=== PATIENT | female | born 1965 | race Caucasian/White ===

== ENCOUNTER → 2016-12-14 | Outpatient (CLI) | payer OTHER ==
[~2016-12-14] MED LIST: ADV500INH INH; BENA25CA2 PO; CALC500C8 PO; EPIP0.3I2 INJ; IBUP600T26 PO; LITH45TASA PO; MULTCAP PO; PRIL20CA9 PO; TAMO10TA PO; TAMOPOW11 XX; TIOT18INH INH; VITA100037 PO; VITATAB11 PO
--- NOTE | 2016-12-14 10:52 | REP ---
Clinical: Osteoarthritis. Technique: AP, lateral, bilateral oblique views of the right hand. Findings: Mild joint space narrowing involving the interphalangeal joints is appreciated. Periarticular sclerosis, spurring and mild subluxation at the first carpal metacarpal joint is also suggested and findings are compatible with early osteoarthritic disease. No acute fracture dislocation. Impression: Early osteoarthritic degenerative changes primarily involving the first carpometacarpal joint and interphalangeal joints. Signed by Waqas Franco MD 12/14/2016 10:43 A
== END ==
LOC: M RAD 10:14
PROVIDERS: ATTEND Family Medicine
DX: M19.041 Primary osteoarthritis, right hand (principal)

== ENCOUNTER 2017-01-17 14:13 | Inpatient (IN) | payer OTHER ==
[~2017-01-17] VITALS: Ht 160 cm; Wt 44.0 kg
[2017-01-17] MEDS ORDERED: NS 1,000 ML IV ONE (15:30)
[2017-01-17 15:55] LABS: BASO # 0.1 K/mm3 (0.0-0.2); BASO % 0.4 % (0.0-1.0); EOS # 0.3 K/mm3 (0.0-0.50); EOS % 2.2 % (0.0-3.0); LARGE UNSTAINED CELL # 0.3 K/mm3 (0.0-0.4); LARGE UNSTAINED CELL % 2.1 % (0.0-4.0); LYMPH # 2.3 K/mm3 (1.5-4.5); MEAN CORPUSCULAR HEMOGLOBIN 33.6 pg (27.0-33.0); MEAN CORPUSCULAR HGB CONC 33.3 g/dl (32.0-36.5); MEAN CORPUSCULAR VOLUME 100.8 fl (80.0-96.0); MONO # 0.9 K/mm3 (0.0-0.8); MONO % 6.2 % (0.0-5.0); NEUTROPHILS # 10.6 K/mm3 (1.8-7.7); NEUTROPHILS % 75.2 % (36.0-66.0); RED CELL DISTRIBUTION WIDTH 11.9 % (11.5-14.5); WHITE BLOOD COUNT 14.2 K/mm3 (4.0-10.0)
[2017-01-17 16:02] LABS: PLATELET COUNT, AUTOMATED 326 k/mm3 (150-450)
[2017-01-17 16:03] LABS: METHADONE URINE NEGATIVE (NEGATIVE)
[2017-01-17 16:40] LABS: ALBUMIN 3.7 GM/DL (3.2-5.2); ALBUMIN/GLOBULIN RATIO 1.23 (1.00-1.93); ALKALINE PHOSPHATASE 110 U/L (45-117); ALT/SGPT 17 U/L (12-78); ANION GAP 10 MEQ/L (8-16); AST/SGOT 14 U/L (15-37); BILIRUBIN,DIRECT < 0.1 MG/DL (0.0-0.2); BILIRUBIN,TOTAL 0.4 MG/DL (0.2-1.0); BLOOD UREA NITROGEN 13 MG/DL (7-18); CALCIUM LEVEL 12.3 MG/DL (8.5-10.1); CARBON DIOXIDE LEVEL 26 MEQ/L (21-32); CHLORIDE LEVEL 102 MEQ/L (98-107); CREATININE FOR GFR 0.88 MG/DL (0.55-1.02); GLOMERULAR FILTRATION RATE > 60.0 (>51); GLUCOSE, FASTING 104 MG/DL (70-105); POTASSIUM SERUM 4.2 MEQ/L (3.5-5.1); SODIUM LEVEL 138 MEQ/L (136-145); TOTAL PROTEIN 6.7 GM/DL (6.4-8.2)
[2017-01-17 16:57] LABS: LITHIUM LEVEL 2.23 MEQ/L (0.60-1.20)
[2017-01-17] MEDS ORDERED: TAMO20TA4 PO (18:14)
[2017-01-17] MEDS ORDERED: MELO15TA4 PO (18:14)
[2017-01-17] MEDS ORDERED: PROA1AER INH (18:14)
[2017-01-17] MEDS ORDERED: VOLT1GEL24 TD (18:14)
[2017-01-17] MEDS ORDERED: DIPH25CA PO (18:15)
[2017-01-17] MEDS ORDERED: CALC600T10 PO (18:16)
[2017-01-17] MEDS ORDERED: ACETAMINOPHEN TAB 650MG DOSE (2X325MG) PO PRN (19:00)
[2017-01-17] MEDS ORDERED: ONDANSETRON 4MG/2ML VIAL (J2405) IV PRN (19:00)
[2017-01-17] MEDS ORDERED: diphenhydrAMINE 25 MG CAP PO PRN (19:15)
[2017-01-17] MEDS ORDERED: ALBUTEROL 90 MCG/ACT 8GM HFA INHALER INH PRN (19:15)
--- NOTE | 2017-01-17 19:30 | HPEPDOC ---
Medical History and Physical Date of Admission History and Physical PRIMARY CARE PROVIDER: Dr. Boyd - resident clinic Oncologist: Dr. Sparks in [place]. Radiation Oncologist: Dr. Joyce Psychiatrist: Dr. Urban ATTENDING: Dr. Granado ADVANCED DIRECTIVES: FULL CODE CHIEF COMPLAINT: [Weakness] HISTORY OF PRESENT ILLNESS: [51-year-old female with known history of bipolar disorder was seen by her psychiatrist today and felt that she needed a lithium level checked and sent to the emergency department for lab work. Her lithium level was noted to be elevated mildly by the ER staff and hospitalist was contacted for overnight admission evaluation as well as follow-up in the morning. The ER did speak with Dr. Richard/log buncher who felt that this was a mild elevation. She has good kidney function and does not require any emergent hemodialysis. She informs me that she's had weakness, intermittent tremors for the last several months. Her psychiatrist has scheduled her to see neurology here in [place]. That appointment is scheduled for sometime next week. She denies any constitutional symptoms. She denies fevers, chills, nausea, vomiting or diarrhea. No change in appetite. She's had a 12 pound weight loss which is unintentional. She does have an underlying history of left breast cancer status post lumpectomy followed by medical oncology, radiation oncology and is currently on tamoxifen.] PAST MEDICAL HISTORY: 1. Bipolar disorder. 2. Schizophrenia. 3. Asthma. 4. Arthritis. 5. GERD. 6. Nut allergy PAST SURGICAL HISTORY: 1. Left breast lumpectomy. 2. D&C. 3. Total abdominal hysterectomy with bilateral salpingo-oophorectomy SOCIAL HISTORY: She states that she quit smoking approximately 6 years ago. Occasional alcohol use. She drank 2 beers last night and spent several weeks since last time she had a alcohol. She has one dog. Recent travel was to [place] approximately 2 weeks ago. She denies any sick contacts. FAMILY HISTORY: Noncontributory ALLERGIES: Please see below. REVIEW OF SYSTEMS: CONSTITUTIONAL: 12 pound weight loss in the last couple of months. Generalized weakness for the last few days. No fever, chills, nausea or vomiting . HEENT: No headache, lightheadedness, blurred or loss of vision. No difficulty with speech or swallow. CARDIOVASCULAR: No chest pain, palpitations, paroxysmal nocturnal dyspnea or lower extremity edema RESPIRATORY: No cough, productive sputum, wheeze or hemoptysis GENITOURINARY: No dysuria, frequency, or discharge MUSCULOSKELETAL: No bone, muscle or joint pain. GASTROINTESTINAL: No [place], vomitting, change in appetite. Bowel movements are regular without hematochezia or melena. No bladder or bowel incontinence. SKIN: No complaint of lesions, abrasions or rashes NEUROLOGICAL: No blurred vision, headaches, parasthesias or paralysis PSYCHIATRIC: No depression, anxiety, audiovisual hallucinations. No suicidal ideations. ENDOCRINE: Denies history of diabetes or thyroid disorder. No history of endocrine abnormalities. HEMATOLOGIC/LYMPHATIC: No lumpbs, bumps or swelling of neck, axilla or groin. No night sweats or weight loss. HOME MEDICATIONS: Please see below. PHYSICAL EXAMINATION: GENERAL APPEARANCE: [No acute distress, is pleasant]. HEENT: [Is atraumatic and cephalic. Eyes PERRLA. Throat clear]. CARDIOVASCULAR: [Regular rate and rhythm. No murmurs]. LUNGS: [Clear to auscultation bilaterally]. ABDOMEN: [Soft, nontender, positive bowel sounds. No masses. No rebound]. MUSCULOSKELETAL: [Her strength is equal. No motor or sensory deficits noted]. EXTREMITIES: [Pulses are equal. No lower extremity edema]. NEUROLOGICAL: [Cranial nerves II through XII are grossly intact. She has a mild tremor noted distally in the hands but no asterixis]. PSYCHIATRIC: [Pleasant, no suicidal ideation. No audiovisual examinations]. LABORATORY DATA: See below. IMAGING: MICROBIOLOGY: Please see below. ASSESSMENT: [ 1. Mild lithium toxicity. 2. Tremor 3. Bipolar disorder. 4. Schizophrenia. 5. Asthma. 6. History of breast cancer status post left breast lumpectomy, currently on tamoxifen and has had radiation oncology]. PLAN: [Patient be admitted to medical surgical floor under the care of Dr. Granado to be seen tomorrow morning. She appears to be hemodynamically stable. Her renal function is stable and she does appear to have some mild lithium toxicity with no urgent need of hemodialysis. Case was discussed with Dr. Richard by the emergency department staff. We'll hold her evening lithium dose as well as tomorrow morning, and plan on repeating her lithium with renal Profile that time. She is already scheduled with neurology for further evaluation of her tremors. Would like to see if this improves with normalization of her serum lithium level. I did not place any formal consultations with nephrology or neurology. At this time. We'll see how she's doing on the morning. If her labs are improved. Her lithium level is back to normal. She likely can be discharged home with appropriate follow-up with her psychiatrist as well as neurology. She does not indicate to me that she has mistakenly doubled up on any of her doses of her lithium. However, this may need to be adjusted by her psychiatrist. Her TSH was noted to be low with hemolysis and lab is going to recollect this. We may want to follow up on this in the morning since hyperthyroidism may account for her weight loss. No goiter noted on physical exam. DVT prophylaxis: Patient is ambulatory. We'll encourage her to ambulate. Disposition: She'll be admitted as observation status and anticipate home discharge tomorrow. Vital Signs Vital Signs Date Time Temp Pulse Resp B/P (MAP) Pulse Ox O2 Delivery O2 Flow Rate FiO2 01/17/17 18:12 71 17 108/64 (79) 98 Room Air 01/17/17 14:14 96.4 Laboratory Data Labs 24H Laboratory Tests 2 01/17/17 15:28: Urine Appearance HAZY, Urine Color YELLOW, Urine pH 7.0, Urine Specific [place] 1.002, Urine Protein NEGATIVE, Urine Glucose (UA) NEGATIVE, Urine Ketones NEGATIVE, Urine Urobilinogen 0.2, Urine Bilirubin NEGATIVE, Urine Leukocyte Esterase NEGATIVE, Urine Blood NEGATIVE, Urine Nitrite NEGATIVE, Urine WBC (Auto ) 1, Urine RBC (Auto) 1, Urine Hyaline Casts (Auto) 0, Urine Bacteria (Auto) 1+H , Urine Squamous Epithelial Cells 1, Urine Sperm (Auto) , Urine Amphetamines Screen NEGATIVE, Urine Benzodiazepines Screen NEGATIVE, Urine Opiates Screen NEGATIVE, Urine Methadone Screen NEGATIVE, Urine Barbiturates Screen NEGATIVE, Urine Phencyclidine Screen NEGATIVE, Urine Cocaine Metabolite Screen NEGATIVE, Urine Cannabinoids Screen POSITIVEH 01/17/17 15:44: White Blood Count 14.2H, Red Blood Count 3.64L, Hemoglobin 12.2, Hematocrit 36.7 , Mean Corpuscular Volume 100.8H, Mean Corpuscular Hemoglobin 33.6H, Mean Corpuscular Hemoglobin Concent 33.3, Red Cell Distribution Width 11.9, Platelet Count 326, Neutrophils (%) (Auto) 75.2H, Lymphocytes (%) (Auto) 14.0L, Monocytes (%) (Auto) 6.2H, Eosinophils (%) (Auto) 2.2, Basophils (%) (Auto) 0.4 , Neutrophils # (Auto) 10.6H, Lymphocytes # (Auto) 2.3, Monocytes # (Auto) 0.9H , Eosinophils # (Auto) 0.3, Basophils # (Auto) 0.1, Large Unclassified Cells % 2.1, Large Unclassified Cells # 0.3 01/17/17 15:54: Anion Gap 10, Glomerular Filtration Rate > 60.0, Calcium Level 12.3H, Aspartate Amino Transf (AST/SGOT) 14L, Alanine Aminotransferase (ALT/SGPT) 17, Alkaline Phosphatase 110, Total Bilirubin 0.4, Direct Bilirubin < 0.1, Total Protein 6.7 , Albumin 3.7, Albumin/Globulin Ratio 1.23, Thyroid Stimulating Hormone (TSH) 0.028L, Free Thyroxine 2.30H, [place] Level 2.23*H CBC/BMP Laboratory Tests 01/17/17 15:44 Red Blood Count 3.64 L, Mean Corpuscular Volume 100.8 H, Mean Corpuscular Hemoglobin 33.6 H, Mean Corpuscular Hemoglobin Concent 33.3, Red Cell Distribution Width 11.9, Neutrophils (%) (Auto) 75.2 H, Lymphocytes (%) (Auto) 14.0 L, Monocytes (%) (Auto) 6.2 H, Eosinophils (%) (Auto) 2.2, Basophils (%) ( Auto) 0.4, Neutrophils # (Auto) 10.6 H, Lymphocytes # (Auto) 2.3, Monocytes # ( Auto) 0.9 H, Eosinophils # (Auto) 0.3, Basophils # (Auto) 0.1 01/17/17 15:54 Home Medications Scheduled (Multivitamins) 1 Cap Cap, 1 CAP PO DAILY B1/B2/B3/B5/B6 (Vitamin B Complex) 1 Tab Tab, 1 TAB PO DAILY Calcium (Calcium) 600 Mg Tab, 600 MG PO DAILY [place] Carbonate ([place] Carbonate ER) 450 Mg Tabcr, 450 MG PO BID Meloxicam (Meloxicam) 15 Mg Tab, 15 MG PO DAILY Omeprazole (Prilosec) 20 Mg Cap, 20 MG PO DAILY Salmeterol/Fluticasone (Advair Diskus 500-50 Mcg/Dose) 28 Puff/Inhaler Aerp, 1 PUFF INH BID Tamoxifen Citrate (Tamoxifen Citrate) 20 Mg Tab, 20 MG PO DAILY Tiotropium [place] Monohydrate (Spiriva Handihaler) 5 Inhalation/Inhaler Powd, 1 INHALATION INH DAILY Vitamin D (Vitamin D) 1,000 Unit Cap, 1,000 UNIT PO DAILY Scheduled PRN (Epipen 2-Jose) 0.3 Mg/0.3 Ml Inj, 0.3 MG INJ for allergic rxn (Voltaren) 1 % Gel, 2 GRAM TD QID PRN for PAIN APPLIES TO RIGHT THUMB Albuterol Sulfate (Proair Hfa) 108 Mcg/Act Aer, 2 PUFF INH QID PRN for SHORTNESS OF BREATH Diphenhydramine HCl (Diphenhydramine HCl) 25 Mg Cap, 25 MG PO Q6H PRN for ALLERGIC REACTION Allergies Coded Allergies: Banana (Unverified Allergy, Unknown, 01/17/17) Cabbage (Unverified Allergy, Unknown, 01/17/17) Grape (Unverified Allergy, Unknown, 01/17/17) Lettuce (Unverified Allergy, Unknown, 01/17/17) NUTS (Unverified Allergy, Unknown, 01/17/17) DMITRIY COVARRUBIAS DO Jan 17, 2017 19:30
[2017-01-17 20:58] VITALS: BP 116/69
[2017-01-17] MEDS: DOCUSATE SODIUM 100 MG CAP PO SCH (21:00)
[2017-01-18] MEDS: ADVAIR DISKUS 500/50 INH PWD INH SCH ×3 (00:21→20:39)
--- NOTE | 2017-01-18 05:38 | ECGEPIP ---
Stationary ECG Study [facility] - ED Test Date: 2017-01-17 Pat Name: WALDEMAR THOMPSON Department: Room: - Gender: F Nursing Faculty: : [id number] Requested By: LÁZARO Davila PA-C Order Number: [id number] Reading MD: Juan Alberto Doty Measurements Intervals [place] Rate: 77 P: 68 SC: 156 QRS: 80 QRSD: 91 T: 61 QT: 389 QTc: 440 Interpretive Statements SINUS RHYTHM Electronically Signed On 01-18-2017 5:37:45 EDT by Juan Alberto Doty
[2017-01-18 06:00] VITALS: BP 126/74
[2017-01-18 06:34] LABS: MEAN CORPUSCULAR HEMOGLOBIN 33.5 pg (27.0-33.0); MEAN CORPUSCULAR HGB CONC 32.8 g/dl (32.0-36.5); WHITE BLOOD COUNT 11.2 K/mm3 (4.0-10.0)
[2017-01-18 06:53] LABS: ALBUMIN 3.3 GM/DL (3.2-5.2); ANION GAP 4 MEQ/L (8-16); BLOOD UREA NITROGEN 12 MG/DL (7-18); CALCIUM LEVEL 10.7 MG/DL (8.5-10.1); CARBON DIOXIDE LEVEL 27 MEQ/L (21-32); CHLORIDE LEVEL 110 MEQ/L (98-107); CREATININE FOR GFR 0.85 MG/DL (0.55-1.02); GLOMERULAR FILTRATION RATE > 60.0 (>51); GLUCOSE, FASTING 106 MG/DL (70-105); PHOSPHORUS LEVEL 3.6 MG/DL (2.5-4.9); POTASSIUM SERUM 4.2 MEQ/L (3.5-5.1); SODIUM LEVEL 141 MEQ/L (136-145)
[2017-01-18 06:58] LABS: LITHIUM LEVEL 1.57 MEQ/L (0.60-1.20)
[2017-01-18] MEDS: TIOTROPIUM INHALER/CAPSULE (SPIRIVA) INH SCH (07:24)
[2017-01-18 08:00] VITALS: BP 126/74
[2017-01-18] MEDS: TAMOXIFEN CITRATE 10 MG TAB PO SCH (08:25)
[2017-01-18] MEDS: DOCUSATE SODIUM 100 MG CAP PO SCH ×2 (08:25→20:27)
[2017-01-18] MEDS: VITAMIN D 1,000 INTERNATIONAL UNITS TABLET PO SCH (08:26)
[2017-01-18] MEDS: OMEPRAZOLE 20 MG CAP PO SCH (08:26)
[2017-01-18] MEDS: VITAMIN B COMPLEX/VIT C CAP PO SCH (08:28)
[2017-01-18] MEDS ORDERED: ENOXAPARIN 40 MG/0.4 ML SYRINGE (J1650) SC SCH (09:00)
[2017-01-18 10:38] LABS: FREE T4 2.14 NG/DL (0.76-1.46)
--- NOTE | 2017-01-18 13:44 | IPNPDOC ---
Text Note Date of Service The patient was seen on 01/18/17. NOTE Subjective: Patient is a 51 year old female with a PMHx of Bipolar disorder, Schizophrenia, Asthma, Arthritis and GERD who presented to the ER for a lithium check after she had a few months of weakness and tremors. Her psychiatrist sent her in for evaluation after they suspected an elevation in her lithium level. She was admitted after she was found to have a supra-therapeutic level. Patient was seen and examined at the bedside. Currently she notes that she has improvement in her symptoms but not full resolution. Objective: Vitals (See below) General: Lying in bed, no acute distress, comfortable, AAOx3 HEENT: NC, AT CVS: RRR, +S1S2 Lungs: Fair air entry b/l, -w/r/r Abdomen: Soft, ND, NT, +BSx4 Extremities: +PPx4, - Edema, - Calf tenderness, + tremors Assessment and plan: 1. Tremulousness - likely 2/2 elevated lithium level / lithium toxicity - Reports improvement in her symptoms, less tremors noted - Physical is unrevealing - No abnormalities in her kidney function noted - [place] level has trended down, however still elevated - will c/w IV fluid hydration - Will follow up with Neurology and Psychiatry as an outpatient 2. Bipolar disorder - will hold lithium for now (re: toxicity) 3. Low TSH and Elevated Free T4 - possibly 2/2 hypothyroidism - 2/2 medications (ie. [place]) - Repeat lab work again shows similar results - Will stop lithium and have repeat thyroid function test in 6-8 weeks as an outpatient 4. Schizophrenia 5. Asthma 6. Hx of Breast cancer - s/p left breast lumpectomy - c/w Tamoxifen - Follows with [place] oncology and Radiation Oncology (Dr. Joyce) 7. Vitamin D deficiency - c/w Vitamin D supplementation 8. Asthma - c/w Advair, Spiriva and Albuterol PRN 9. GI prophylaxis - c/w Omeprazole 10. DVT prophylaxis - c/w Lovenox Disposition: - c/w IV fluid hydration - repeat [place] level in AM VS,Fishbone, I+O VS, Fishbone, I+O Laboratory Tests 01/17/17 15:44 Red Blood Count 3.64 L, Mean Corpuscular Volume 100.8 H, Mean Corpuscular Hemoglobin 33.6 H, Mean Corpuscular Hemoglobin Concent 33.3, Red Cell Distribution Width 11.9, Neutrophils (%) (Auto) 75.2 H, Lymphocytes (%) (Auto) 14.0 L, Monocytes (%) (Auto) 6.2 H, Eosinophils (%) (Auto) 2.2, Basophils (%) ( Auto) 0.4, Neutrophils # (Auto) 10.6 H, Lymphocytes # (Auto) 2.3, Monocytes # ( Auto) 0.9 H, Eosinophils # (Auto) 0.3, Basophils # (Auto) 0.1 01/17/17 15:54 01/18/17 06:03 Red Blood Count 3.36 L, Mean Corpuscular Volume 102.0 H, Mean Corpuscular Hemoglobin 33.5 H, Mean Corpuscular Hemoglobin Concent 32.8, Red Cell Distribution Width 12.0, Anion Gap 4 L Vital Signs Date Time Temp Pulse Resp B/P (MAP) Pulse Ox O2 Delivery O2 Flow Rate FiO2 01/18/17 08:33 Room Air 01/18/17 08:00 98.2 81 18 126/74 97 I&O- Last 24 Hours up to 6 AM 01/18/17 06:00 Intake Total 140 ml Output Total 2100 ml Balance -1960 ml OSCAR BRICE MD Jan 18, 2017 13:44
[2017-01-18 14:00] VITALS: BP 110/88
[2017-01-18] MEDS ORDERED: NS 1,000 ML IV SCH (14:00)
[2017-01-18 22:00] VITALS: BP 126/96
[2017-01-19 06:00] VITALS: BP 132/76
[2017-01-19 06:47] LABS: MEAN CORPUSCULAR HEMOGLOBIN 34.1 pg (27.0-33.0); MEAN CORPUSCULAR HGB CONC 33.8 g/dl (32.0-36.5); MEAN CORPUSCULAR VOLUME 100.8 fl (80.0-96.0); RED CELL DISTRIBUTION WIDTH 11.9 % (11.5-14.5); WHITE BLOOD COUNT 11.2 K/mm3 (4.0-10.0)
[2017-01-19 06:57] LABS: ANION GAP 6 MEQ/L (8-16); BLOOD UREA NITROGEN 11 MG/DL (7-18); CALCIUM LEVEL 9.8 MG/DL (8.5-10.1); CARBON DIOXIDE LEVEL 22 MEQ/L (21-32); CHLORIDE LEVEL 110 MEQ/L (98-107); CREATININE FOR GFR 0.76 MG/DL (0.55-1.02); GLOMERULAR FILTRATION RATE > 60.0 (>51); GLUCOSE, FASTING 110 MG/DL (70-105); PHOSPHORUS LEVEL 2.6 MG/DL (2.5-4.9); POTASSIUM SERUM 4.5 MEQ/L (3.5-5.1); SODIUM LEVEL 138 MEQ/L (136-145)
[2017-01-19] MEDS: ADVAIR DISKUS 500/50 INH PWD INH SCH (07:13)
[2017-01-19] MEDS: TIOTROPIUM INHALER/CAPSULE (SPIRIVA) INH SCH (07:13)
[2017-01-19] MEDS: DOCUSATE SODIUM 100 MG CAP PO SCH ×2 (08:39→09:06)
[2017-01-19] MEDS: OMEPRAZOLE 20 MG CAP PO SCH (08:39)
[2017-01-19] MEDS: VITAMIN D 1,000 INTERNATIONAL UNITS TABLET PO SCH (08:39)
[2017-01-19] MEDS: TAMOXIFEN CITRATE 10 MG TAB PO SCH (08:40)
[2017-01-19] MEDS: VITAMIN B COMPLEX/VIT C CAP PO SCH (08:40)
[2017-01-19] MEDS ORDERED: LITH600C PO (10:11)
[2017-01-20 00:07] LABS: Lyme Disease IgG/IgM Antibodie <0.91 ISR (0.00-0.90); Lyme Disease IgM Ab Quantitati <0.80 index (0.00-0.79)
--- NOTE | 2017-01-24 17:19 | DSES ---
DATE OF ADMISSION: 01/17/2017 DATE OF DISCHARGE: 01/19/2017 PRIMARY CARE PHYSICIAN: Unknown. REFERRING PHYSICIAN: None. CONSULTING PHYSICIAN: None. CONDITION ON DISCHARGE: Stable. FINAL DIAGNOSIS: Tremulousness, likely secondary to lithium level toxicity. PROCEDURES: None. HISTORY OF PRESENT ILLNESS: Patient is a 51-year-old female with a past medical history of bipolar disorder, schizophrenia, asthma, arthritis, and gastroesophageal reflux disease (GERD), who presented to the emergency room for a lithium check after she had a few months of weakness and tremors. Her psychiatrist sent her for an evaluation after a suspected elevation in her lithium level. She was admitted after she was found to have a supratherapeutic lithium level. HOSPITAL COURSE: 1. Tremulousness, likely secondary to elevated lithium level and lithium toxicity. Reports improvement in her symptoms throughout her hospital course. Less tremors were noted. Physical was unrevealing. No abnormalities in her kidney function were noted. [place] level has trended down throughout her hospital course. Patient has been started on intravenous (IV) hydration throughout her hospital course. Patient will followup with neurology and psychiatry as an outpatient. [place] toxicity was likely caused by lithium medication given that she was taking nonsteroidal anti-inflammatory drugs (NSAIDs) concurrently, meloxicam for her joint pain. Patient has been discontinued from meloxicam and continued with lithium upon discharge with an adjusted dose. 2. Bipolar disorder. Will hold lithium given toxicity. 3. Low thyroid-stimulating hormone (TSH) and elevated free T4, possibly secondary to hypothyroidism secondary to medications secondary to lithium. Repeat lab work shows similar results. Patient will have adjusted dose of lithium and will followup as an outpatient. Will have a repeat thyroid function test in 6-8 weeks. I have discussed with the patient's psychiatrist, who is aware and will repeat the lab work. 4. Schizophrenia. 5. Asthma. 6. History of breast cancer status post left breast lumpectomy. Continue with tamoxifen. Follows with [place] oncology and radiation oncology, Dr. Shelton. 7. Vitamin D deficiency. Continue with vitamin D supplementation. 8. Asthma. Continue with Advair, Spiriva, and albuterol as needed. 9. Gastrointestinal (GI) prophylaxis. Continue with omeprazole. 10. Deep vein thrombosis (DVT) prophylaxis. Continue with Lovenox. DISCHARGE MEDICATIONS: Patient has been discharged on the following medication list. New prescription include: - lithium carbonate 600 mg by mouth daily Stopped medications include: - lithium carbonate 450 mg by mouth twice a day - meloxicam 50 mg by mouth daily Continued medications include: - albuterol 2 puffs inhaled four times a day as needed for shortness of breath - vitamin B complex one tablet by mouth daily - calcium 600 mg by mouth daily - diphenhydramine 25 mg by mouth every 6 hours as needed for allergic reaction - Epipen 0.3 mg to be taken as directed - multivitamin one tablet by mouth daily - omeprazole 20 mg by mouth daily - Advair Diskus 500/50 one puff inhaled twice a day - Tamoxifen 20 mg by mouth daily - Spiriva inhaled daily - vitamin D 1000 units by mouth daily - Voltaren gel 2 grams transdermally four times a day as needed for pain DISCHARGE INSTRUCTIONS: Patient has been advised to followup with her primary care provider, psychiatry, and neurology within the next 7 days. She has been advised to remain complaint with treatment plan and medications and return to the emergency room if she experiences any problems. TIME SPENT ON DISCHARGE: 35 minutes.
== END 2017-01-19 13:55 | disposition home or self-care (01) | DRG 93 ==
LOC: M ED 17:09 → M ED INP 19:00 → M MS5PR 20:40
PROVIDERS: ADMIT Hospitalist; ATTEND Internal Medicine
DX: R25.1 Tremor, unspecified (principal); T43.595A Adverse effect of other antipsychotics and neuroleptics, initial encounter; R53.1 Weakness; F31.9 Bipolar disorder, unspecified; F20.9 Schizophrenia, unspecified; K21.9 Gastro-esophageal reflux disease without esophagitis; E03.9 Hypothyroidism, unspecified; E55.9 Vitamin D deficiency, unspecified; J45.909 Unspecified asthma, uncomplicated; Z85.3 Personal history of malignant neoplasm of breast; Z79.899 Other long term (current) drug therapy; Z91.018 Allergy to other foods

== ENCOUNTER → 2017-01-23 | Outpatient (CLI) | payer OTHER ==
[~2017-01-23] MED LIST changes: +CALC600T10 PO; +DIPH25CA PO; +LITH600C PO; +MELO15TA4 PO; +PROA1AER INH; +TAMO20TA4 PO; +VOLT1GEL24 TD
== END ==
LOC: M LAB 11:58
PROVIDERS: ATTEND Internal Medicine
DX: Z13.88 Encounter for screening for disorder due to exposure to contaminants (principal)

== ENCOUNTER → 2017-02-01 | Outpatient (CLI) | payer OTHER ==
[~2017-02-01] MED LIST changes: -CALC600T10 PO; +CALC600T31 PO; +IBUP-1022 PO; -IBUP600T26 PO; +LISI10TA4; -PROA1AER INH; +PROAAER10 INH; -VITA100037 PO; +VITA100067 PO; +VOLT1GEL15 TD; -VOLT1GEL24 TD
[2017-02-01 17:07] LABS: LITHIUM LEVEL 1.07 MEQ/L (0.60-1.20)
== END ==
LOC: M LAB 15:24
PROVIDERS: ATTEND Psychiatry & Neurology Psychiatry
DX: Z51.81 Encounter for therapeutic drug level monitoring (principal); Z79.899 Other long term (current) drug therapy

== ENCOUNTER 2017-03-26 16:10 | Emergency (ER) | payer OTHER ==
[~2017-03-26] VITALS: Ht 160 cm; Wt 45.5 kg
[~2017-03-26 16:10] MED LIST changes: -LISI10TA4
[2017-03-26] MEDS ORDERED: RABIES IMMUNE GLOBULIN 1500 INTERNATIONAL UNITS/10 ML VIAL (90375) IM ONE (17:00)
[2017-03-26] MEDS ORDERED: RABIES VACCINE HUMAN 2.5 INTERNATIONAL UNITS/ML VIAL (90675) IM ONE (17:00)
[2017-03-26] MEDS ORDERED: RABIES IMMUNE GLOBULIN 300 INTERNATIONAL UNITS/2 ML VIAL (90375) IM ONE (17:15)
[2017-03-26 18:09] VITALS: BP 168/103
== END 2017-03-26 18:11 | disposition home or self-care (01) ==
LOC: M ED 16:10
DX: Z20.3 Contact with and (suspected) exposure to rabies (principal)

== ENCOUNTER 2017-03-29 16:10 | Emergency (ER) | payer OTHER ==
[~2017-03-29] VITALS: Ht 160 cm; Wt 50.0 kg
[2017-03-29 16:10] VITALS: BP 168/84
[~2017-03-29 16:10] MED LIST changes: -LISI10TA4
[2017-03-29] MEDS ORDERED: RABIES VACCINE HUMAN 2.5 INTERNATIONAL UNITS/ML VIAL (90675) IM ONE (18:07)
== END 2017-03-29 18:36 | disposition home or self-care (01) ==
LOC: M ED 16:10
DX: Z20.3 Contact with and (suspected) exposure to rabies (principal); Z72.0 Tobacco use

== ENCOUNTER → 2017-03-29 | Outpatient (CLI) | payer OTHER ==
[~2017-03-29] MED LIST changes: +LISI10TA4
== END ==
LOC: M LAB 08:50
PROVIDERS: ATTEND Student in an Organized Health Care Education/Training Program
DX: M79.644 Pain in right finger(s) (principal)

== ENCOUNTER 2017-04-02 10:32 | Emergency (ER) | payer OTHER ==
[~2017-04-02] VITALS: Ht 160 cm; Wt 45.9 kg
[2017-04-02 10:33] VITALS: BP 166/82
[2017-04-02] MEDS ORDERED: RABIES VACCINE HUMAN 2.5 INTERNATIONAL UNITS/ML VIAL (90675) IM ONE (11:00)
== END 2017-04-02 11:12 | disposition home or self-care (01) ==
LOC: M ED 10:32
DX: Z20.3 Contact with and (suspected) exposure to rabies (principal)

== ENCOUNTER 2017-04-09 09:02 | Emergency (ER) | payer OTHER ==
[~2017-04-09] VITALS: Ht 157.5 cm; Wt 45.9 kg
[2017-04-09 09:02] VITALS: BP 134/83
[2017-04-09] MEDS ORDERED: LISI10TA4 (09:12)
[2017-04-09] MEDS ORDERED: RABIES VACCINE HUMAN 2.5 INTERNATIONAL UNITS/ML VIAL (90675) IM ONE (09:45)
== END 2017-04-09 10:13 | disposition home or self-care (01) ==
LOC: M ED 09:02
DX: Z20.3 Contact with and (suspected) exposure to rabies (principal)

== ENCOUNTER → 2017-04-11 | Outpatient (CLI) | payer OTHER ==
[~2017-04-11] MED LIST changes: +LISI10TA4
[2017-04-11 16:00] LABS: MEAN CORPUSCULAR HEMOGLOBIN 34.1 pg (27.0-33.0); MEAN CORPUSCULAR VOLUME 106.8 fl (80.0-96.0); RED CELL DISTRIBUTION WIDTH 12.5 % (11.5-14.5); WHITE BLOOD COUNT 8.6 K/mm3 (4.0-10.0)
[2017-04-11 16:12] LABS: FREE T4 0.77 NG/DL (0.76-1.46)
[2017-04-11 16:15] LABS: LITHIUM LEVEL 1.24 MEQ/L (0.60-1.20)
== END ==
LOC: M LAB 15:18
PROVIDERS: ATTEND Student in an Organized Health Care Education/Training Program
DX: R63.4 Abnormal weight loss (principal)

== ENCOUNTER → 2017-06-13 | Outpatient (CLI) | payer OTHER ==
--- NOTE | 2017-06-15 06:25 | RADONC ---
RADIATION ONCOLOGY FOLLOWUP NOTE DATE: 06/13/2017 CHART NUMBER: [id number] DIAGNOSIS: Left breast cancer. STAGE: Stage I A, [id number]. ECOG PERFORMANCE STATUS: 0. FOLLOWUP NOTE: Ms. Louie is a very pleasant 51-year-old white female with the diagnosis of a stage I A, [id number], moderately differentiated invasive ductal carcinoma of the left breast who is presenting to us today for routine followup visit 3 years and 11 months post completion of external beam radiation therapy. The patient presents today reporting that she is doing quite well with no complaints at this time related to her radiation therapy or disease. She has no breast or bone pain. REVIEW OF SYSTEMS: The patient's review of systems is noncontributory. Denies nausea, vomiting, fevers, chills, night sweats, diplopia, headaches, anxiety or depression, anorexia, weight loss, visual disturbances, chest pain, urinary or bowel difficulties, bone pain, or neurological problems. PHYSICAL EXAMINATION: The patient is a well-developed, well-nourished 51-year-old female in no acute distress. HEENT exam is normocephalic, atraumatic. Extraocular movements are intact. There is no palpable cervical, supraclavicular, infraclavicular, axillary, or inguinal lymphadenopathy present. Lungs are clear to auscultation and percussion. Heart has a regular rate and rhythm. Abdomen is benign with no hepatosplenomegaly, masses, or tenderness. Breast examination reveals no masses or discharge bilaterally. Skeletal examination reveals no tenderness to pressure or percussion of the bony skeleton. Extremities reveal no clubbing, cyanosis, or edema. Neurologic exam is grossly intact, as is the remainder of the physical examination. ASSESSMENT: The patient is clinically HARLAN at this time and will be seen by us again in 1 year for further followup. She will also continue to be followed by her other physicians as well. cc: MD Bailey Arroyo MD
== END ==
LOC: M ONCR 15:44
PROVIDERS: ATTEND Radiology Radiation Oncology
DX: C50.412 Malignant neoplasm of upper-outer quadrant of left female breast (principal)

== ENCOUNTER → 2017-10-16 | Outpatient (REF) | payer OTHER ==
[2017-10-16 19:56] LABS: APPEARANCE, URINE CLEAR (CLEAR); BACTERIA, URINE AUTO 1+ (NEGATIVE); BILIRUBIN, URINE AUTO NEGATIVE (NEGATIVE); BLOOD, URINE BLOOD NEGATIVE (NEGATIVE); COLOR, URINE STRAW (YELLOW); GLUCOSE, URINE (UA) AUTO NEGATIVE (NEGATIVE); KETONE, URINE AUTO NEGATIVE (NEGATIVE); LEUKOCYTE ESTERASE, URINE AUTO TRACE (NEGATIVE); NITRITE, URINE AUTO NEGATIVE (NEGATIVE); PROTEIN, URINE AUTO NEGATIVE (NEGATIVE); RBC, URINE AUTO 3 /HPF (0-3); SPECIFIC GRAVITY URINE AUTO 1.002 (1.002-1.035); SQUAMOUS EPITHELIAL CELL UR AU 2 /HPF (0-6); UROBILINOGEN, URINE AUTO 0.2 mg/dL (0.0-2.0); WBC, URINE AUTO 1 /HPF (0-3)
== END ==
LOC: M SFHCPLAZ 15:43
DX: R35.0 Frequency of micturition (principal)
CPT/HCPCS: 81001

== ENCOUNTER → 2018-05-22 | Outpatient (CLI) | payer OTHER ==
[2018-05-22 18:26] LABS: HEMATOCRIT 35.5 % (36.0-47.0); HEMOGLOBIN 11.7 g/dl (12.0-15.5); MEAN CORPUSCULAR HEMOGLOBIN 33.9 pg (27.0-33.0); MEAN CORPUSCULAR VOLUME 102.9 fl (80.0-96.0); PLATELET COUNT, AUTOMATED 322 10^3/uL (150-450); RED BLOOD COUNT 3.45 10^6/uL (4.00-5.40); RED CELL DISTRIBUTION WIDTH 12.2 % (11.5-14.5); WHITE BLOOD COUNT 10.3 10^3/uL (4.0-10.0)
[2018-05-22 19:00] LABS: CREATININE FOR GFR 1.01 MG/DL (0.55-1.30); GLOMERULAR FILTRATION RATE > 60.0 (>51); LITHIUM LEVEL 0.89 MEQ/L (0.60-1.20)
[2018-05-22 19:00] LABS: BLOOD UREA NITROGEN 19 MG/DL (7-18)
== END ==
LOC: M LAB 16:55
DX: Z51.81 Encounter for therapeutic drug level monitoring (principal); Z79.899 Other long term (current) drug therapy
CPT/HCPCS: 82565

== ENCOUNTER → 2018-06-12 | Outpatient (CLI) | payer OTHER | LOC: M ONCR 15:28 | DX: C50.912 Malignant neoplasm of unspecified site of left female breast (principal) | CPT/HCPCS: G0463 ==

== ENCOUNTER → 2018-12-06 | Outpatient (CLI) | payer OTHER ==
[~2018-12-06] MED LIST changes: +MELO15TA28 PO; -MELO15TA4 PO; -TAMO20TA4 PO; +TAMO20TA8 PO
--- NOTE | 2018-12-06 19:38 | REP ---
CT chest without contrast: Low-dose screening exam. History: Personal history of nicotine dependence. Comparison chest CT study April 07, 2015. CT findings: There are emphysematous changes in the upper lobes of the lung gaspar bilaterally. No pulmonary mass lesion or significant pulmonary nodule is appreciated. Surgical clips are again noted in the left axillary region. Impression: Lung RADS category 1 negative study. Repeat screening study recommended 1 year. Electronically Signed by Ang Anguiano MD 12/06/2018 08:31 P
== END ==
LOC: M RAD 15:58
PROVIDERS: ATTEND Internal Medicine Pulmonary Disease
DX: R91.8 Other nonspecific abnormal finding of lung field (principal); Z87.891 Personal history of nicotine dependence

== ENCOUNTER → 2019-04-16 | Outpatient (CLI) | payer OTHER ==
[~2019-04-16] MED LIST changes: +ACET-683 PO; +ASMA220A IN; +CALC600T60 PO; -DIPH25CA PO; +DIPH25CA32 PO; +OMEP-218 PO; +VITA100066 PO
--- NOTE | 2019-04-17 01:56 | REP ---
Clinical: Shortness of breath . Comparison: 03/29/2015 . Technique: PA and lateral. Findings: The mediastinum and cardiac silhouette are normal. The lung gaspar demonstrate chronic changes suggesting COPD and emphysematous disease. No focal consolidation, effusion, or pneumothorax. The skeletal structures are intact and normal. Impression: 1. Chronic COPD. 2. No acute cardiopulmonary process. Electronically Signed by Waqas Franco MD 04/17/2019 01:47 A
== END ==
LOC: M WUC 14:41
PROVIDERS: ATTEND Nurse Practitioner Family
DX: J44.1 Chronic obstructive pulmonary disease with (acute) exacerbation (principal)

== ENCOUNTER → 2019-05-07 | Outpatient (CLI) | payer OTHER ==
[~2019-05-07] MED LIST changes: -ACET-683 PO; -ASMA220A IN; -CALC600T60 PO; -OMEP-218 PO; -VITA100066 PO
[2019-05-07 18:35] LABS: HEMATOCRIT 38.4 % (36.0-47.0); HEMOGLOBIN 12.2 g/dl (12.0-15.5); MEAN CORPUSCULAR HEMOGLOBIN 33.6 pg (27.0-33.0); MEAN CORPUSCULAR HGB CONC 31.8 g/dl (32.0-36.5); MEAN CORPUSCULAR VOLUME 105.8 fl (80.0-96.0); PLATELET COUNT, AUTOMATED 267 10^3/uL (150-450); RED BLOOD COUNT 3.63 10^6/uL (4.00-5.40); WHITE BLOOD COUNT 10.2 10^3/uL (4.0-10.0)
[2019-05-07 18:59] LABS: CREATININE FOR GFR 1.45 MG/DL (0.55-1.30); GLOMERULAR FILTRATION RATE 39.9 (>51); LITHIUM LEVEL 0.74 MEQ/L (0.60-1.20); THYROID STIMULATING HORMONE 1.62 uIU/ML (0.358-3.740)
== END ==
LOC: M LAB 17:47
PROVIDERS: ATTEND Psychiatry & Neurology Psychiatry
DX: Z79.899 Other long term (current) drug therapy (principal)

== ENCOUNTER 2019-08-14 08:31 | Day surgery (SDC) | payer OTHER ==
[~2019-08-14] VITALS: Ht 157.5 cm; Wt 47.1 kg
[~2019-08-14 08:31] MED LIST changes: +ACET-683 PO; +ASMA220A IN; +CALC600T60 PO; +NS 1,000 ML IV ONE; +OMEP-218 PO; +VITA100066 PO
[2019-08-14] MEDS ORDERED: propofoL 200 MG/20 ML VIAL As Ordered ONE (09:27)
[2019-08-14] MEDS ORDERED: LIDOCAINE 2% INJ 100 MG/5 ML SDV (FOR ANES.) As Ordered ONE (09:27)
--- NOTE | 2019-08-14 10:42 | ROOR ---
Patient Name: Simona Louie Procedure Date: 08/14/2019 10:06 AM Date of : 1965 Age: 53 Room: [facility] Gender: Female Note Status: Finalized Procedure: Colonoscopy Indications: High risk colon cancer surveillance: Personal history of colonic polyps Providers: Joaquin Do Jr, MD Referring MD: Katy Gomez NP Requesting Provider: Medicines: Propofol per Anesthesia Complications: No immediate complications. Procedure: Pre-Anesthesia Assessment: - Prior to the procedure, a History and Physical was performed, and patient medications and allergies were reviewed. The patient is competent. The risks and benefits of the procedure and the sedation options and risks were discussed with the patient. All questions were answered and informed consent was obtained. Patient identification and proposed procedure were verified by the physician and the nurse in the pre-procedure area and in the procedure room. Mental Status Examination: alert and oriented. Airway Examination: normal oropharyngeal airway and neck mobility. Respiratory Examination: clear to auscultation. CV Examination: normal. ASA Grade Assessment: II - A patient with mild systemic disease. After reviewing the risks and benefits, the patient was deemed in satisfactory condition to undergo the procedure. The anesthesia plan was to use moderate sedation / analgesia (conscious sedation). Immediately prior to administration of medications, the patient was re-assessed for adequacy to receive sedatives. The heart rate, respiratory rate, oxygen saturations, blood pressure, adequacy of pulmonary ventilation, and response to care were monitored throughout the procedure. The physical status of the patient was re-assessed after the procedure. The Colonoscope was introduced through the anus and advanced to the cecum, identified by appendiceal orifice and ileocecal valve. The colonoscopy was performed with moderate difficulty due to the lack of IV access and the patient's anxiety. The quality of the bowel preparation was adequate. Findings: The rectum, cecum, appendiceal orifice and ileocecal valve appeared normal. Five hyperplastic polyps were found in the recto-sigmoid colon, sigmoid colon, descending colon, transverse colon and ascending colon. The polyps were small in size. These polyps were removed with a hot snare. Resection was complete, but the polyp tissue was only partially retrieved. Impression: - The cecum, appendiceal orifice and ileocecal valve are normal. - Five small polyps at the recto-sigmoid colon, in the sigmoid colon, in the descending colon, in the transverse colon and in the ascending colon, removed with a hot snare. Complete resection. Partial retrieval. Recommendation: - Discharge patient to home (ambulatory). - Repeat colonoscopy in 5 years for surveillance based on pathology results. Joaquin Do MD Joaquin Do Jr, MD 08/14/2019 10:42:05 AM Electronically signed by Joaquin Do Jr, MD Number of Addenda: 0 Note Initiated On: 08/14/2019 10:06 AM Estimated Blood Loss: Estimated blood loss: none.
[2019-08-14] MEDS ORDERED: ONDANSETRON 4MG/2ML VIAL (J2405) As Ordered ONE (11:20)
[2019-08-14] MEDS ORDERED: PILL CUTTER 1 EACH XX PRN (11:30)
[2019-08-14 11:55] VITALS: BP 198/76
[2019-08-14] MEDS ORDERED: ONDANSETRON 4 MG TAB (S0181) PO ONE (12:00)
[2019-08-14] MEDS ORDERED: SIMETHICONE 80 MG CHEW TAB PO ONE (12:00)
[2019-08-14] MEDS ORDERED: ONDANSETRON 4MG/2ML VIAL (J2405) IV ONE (15:00)
== END 2019-08-14 12:21 | disposition home or self-care (01) ==
LOC: M OPP 08:31
PROVIDERS: ATTEND Surgery
DX: Z86.010 Personal history of colon polyps (principal); D12.6 Benign neoplasm of colon, unspecified; R12 Heartburn; F41.9 Anxiety disorder, unspecified; F03.90 Unspecified dementia, unspecified severity, without behavioral disturbance, psychotic disturbance, mood disturbance, and anxiety; J44.9 Chronic obstructive pulmonary disease, unspecified; F31.9 Bipolar disorder, unspecified; Z85.3 Personal history of malignant neoplasm of breast; Z92.3 Personal history of irradiation; Z88.1 Allergy status to other antibiotic agents; Z88.5 Allergy status to narcotic agent; Z91.018 Allergy to other foods; Z79.899 Other long term (current) drug therapy
CPT/HCPCS: 45385; 88305; J2405

== ENCOUNTER → 2019-12-15 | Outpatient (CLI) | payer OTHER ==
[~2019-12-15] MED LIST changes: -NS 1,000 ML IV ONE
[2019-12-15 15:23] LABS: BASO # 0.1 10^3/uL (0.0-0.2); BASO % 0.6 % (0.0-1.0); EOS # 0.4 10^3/uL (0.0-0.5); EOS % 4.5 % (0.0-3.0); HEMATOCRIT 40.2 % (36.0-47.0); HEMOGLOBIN 12.7 g/dl (12.0-15.5); LYMPH # 2.3 10^3/uL (1.5-5.0); LYMPH % 26.1 % (24.0-44.0); MEAN CORPUSCULAR HEMOGLOBIN 32.4 pg (27.0-33.0); MEAN CORPUSCULAR HGB CONC 31.6 g/dl (32.0-36.5); MEAN CORPUSCULAR VOLUME 102.6 fl (80.0-96.0); MONO # 0.6 10^3/uL (0.0-0.8); MONO % 7.3 % (0.0-5.0); NEUTROPHILS # 5.3 10^3/uL (1.5-8.5); NEUTROPHILS % 60.9 % (36.0-66.0); PLATELET COUNT, AUTOMATED 308 10^3/uL (150-450); RED BLOOD COUNT 3.92 10^6/uL (4.00-5.40); WHITE BLOOD COUNT 8.7 10^3/uL (4.0-10.0)
[2019-12-15 15:47] LABS: ALBUMIN 3.6 GM/DL (3.2-5.2); ALT/SGPT 20 U/L (12-78); BILIRUBIN,TOTAL 0.3 MG/DL (0.2-1.0); BLOOD UREA NITROGEN 15 MG/DL (7-18); CALCIUM LEVEL 9.2 MG/DL (8.5-10.1); CARBON DIOXIDE LEVEL 25 MEQ/L (21-32); CHLORIDE LEVEL 108 MEQ/L (98-107); CREATININE FOR GFR 0.92 MG/DL (0.55-1.30); GLOMERULAR FILTRATION RATE > 60.0 (>51); GLUCOSE, FASTING 105 MG/DL (70-100); POTASSIUM SERUM 4.4 MEQ/L (3.5-5.1); SODIUM LEVEL 139 MEQ/L (136-145); TOTAL PROTEIN 6.7 GM/DL (6.4-8.2)
== END ==
LOC: M LAB 14:11
PROVIDERS: ATTEND Internal Medicine Hematology & Oncology
DX: C50.912 Malignant neoplasm of unspecified site of left female breast (principal); Z17.0 Estrogen receptor positive status [ER+]

== ENCOUNTER → 2020-03-19 | Outpatient (CLI) | payer OTHER ==
--- NOTE | 2020-04-26 07:07 | REP ---
LOSE-DOSE LUNG SCREENING CT OF THE CHEST Delay in reporting results from hospital computer system malfunction from malware/ ransomware. COMPARISON: 12/06/2018 and 04/07/2015. TECHNIQUE: The study is performed without IV contrast. The images are presented at lung windowing only. FINDINGS: There are no lung masses or nodules. There are no infiltrates or pleural effusions. This is unchanged. There are scattered small bullae throughout the lung gaspar bilaterally. This is unchanged. IMPRESSION: Category [address] low-dose lung screening CT of the chest. The probability of malignancy is less than 1%. Depending on risk factors, consider follow-up annual low-dose lung screening chest CT. MTDD
== END ==
LOC: M RAD 14:59
PROVIDERS: ATTEND Internal Medicine Pulmonary Disease
DX: Z87.891 Personal history of nicotine dependence (principal)

== ENCOUNTER → 2020-05-13 | Outpatient (REF) | payer OTHER ==
[2020-05-13 20:11] LABS: HEMATOCRIT 39.6 % (36.0-47.0); HEMOGLOBIN 12.3 g/dl (12.0-15.5); MEAN CORPUSCULAR HEMOGLOBIN 33.2 pg (27.0-33.0); MEAN CORPUSCULAR HGB CONC 31.1 g/dl (32.0-36.5); PLATELET COUNT, AUTOMATED 343 10^3/uL (150-450); WHITE BLOOD COUNT 15.1 10^3/uL (4.0-10.0)
[2020-05-13 20:23] LABS: CREATININE FOR GFR 1.21 MG/DL (0.55-1.30); LITHIUM LEVEL 0.94 MEQ/L (0.60-1.20); THYROID STIMULATING HORMONE 1.93 uIU/ML (0.358-3.740)
== END ==
LOC: M LAB REF 08:28
PROVIDERS: ATTEND Psychiatry & Neurology Psychiatry
DX: Z79.899 Other long term (current) drug therapy (principal)

== ENCOUNTER → 2021-03-02 | Outpatient (REF) | payer OTHER ==
[~2021-03-02] MED LIST changes: +LISI10TA22; -LISI10TA4
[2021-03-02 18:26] LABS: ETHYL ALCOHOL (ETHANOL) < 0.003 % (0.000-0.010); HEPATITIS A ANTIBODY IGM NEGATIVE (NEGATIVE); HEPATITIS B CORE ANTIBODY IGM NEGATIVE (NEGATIVE); HEPATITIS B SURFACE ANTIGEN NEGATIVE (NEGATIVE); HEPATITIS C VIRUS ABY INDEX 0.1 INDEX (<0.8); VITAMIN B12 LEVEL 518 PG/ML (247-911)
== END ==
LOC: M LAB REF 16:30
PROVIDERS: ATTEND Nurse Practitioner Adult Health
DX: D75.89 Other specified diseases of blood and blood-forming organs (principal); R74.01 Elevation of levels of liver transaminase levels

== ENCOUNTER → 2021-03-10 | Outpatient (REF) | payer OTHER | LOC: M WUC 15:51 | PROVIDERS: ATTEND Physician Assistant | DX: R30.0 Dysuria (principal) ==

== ENCOUNTER → 2021-03-31 | Outpatient (CLI) | payer OTHER ==
[2021-03-31 17:50] LABS: BASO # 0.1 10^3/uL (0.0-0.2); BASO % 0.6 % (0.0-1.0); EOS # 0.5 10^3/uL (0.0-0.5); HEMATOCRIT 37.6 % (36.0-47.0); HEMOGLOBIN 12.4 g/dl (12.0-15.5); LYMPH # 2.6 10^3/uL (1.5-5.0); LYMPH % 22.9 % (24.0-44.0); MEAN CORPUSCULAR HEMOGLOBIN 33.6 pg (27.0-33.0); MEAN CORPUSCULAR VOLUME 101.9 fl (80.0-96.0); MONO # 0.9 10^3/uL (0.0-0.8); MONO % 7.8 % (2.0-8.0); NEUTROPHILS # 7.2 10^3/uL (1.5-8.5); NEUTROPHILS % 64.3 % (36.0-66.0); PLATELET COUNT, AUTOMATED 371 10^3/uL (150-450); RED BLOOD COUNT 3.69 10^6/uL (4.00-5.40); WHITE BLOOD COUNT 11.2 10^3/uL (4.0-10.0)
[2021-03-31 18:20] LABS: ALBUMIN 3.4 GM/DL (3.2-5.2); ALT/SGPT 21 U/L (12-78); BILIRUBIN,TOTAL 0.3 MG/DL (0.2-1.0); BLOOD UREA NITROGEN 8 MG/DL (7-18); CALCIUM LEVEL 9.5 MG/DL (8.5-10.1); CARBON DIOXIDE LEVEL 27 MEQ/L (21-32); CHLORIDE LEVEL 109 MEQ/L (98-107); CREATININE FOR GFR 0.87 MG/DL (0.55-1.30); GLOMERULAR FILTRATION RATE > 60.0 (>51); GLUCOSE, FASTING 103 MG/DL (70-100); POTASSIUM SERUM 3.8 MEQ/L (3.5-5.1); SODIUM LEVEL 141 MEQ/L (136-145); TOTAL PROTEIN 6.3 GM/DL (6.4-8.2)
== END ==
LOC: M LAB 16:44
PROVIDERS: ATTEND Internal Medicine Hematology & Oncology
DX: C50.912 Malignant neoplasm of unspecified site of left female breast (principal); Z17.0 Estrogen receptor positive status [ER+]

== ENCOUNTER → 2021-05-23 | Outpatient (CLI) | payer OTHER ==
[2021-05-23 18:45] LABS: HEMATOCRIT 40.1 % (36.0-47.0); HEMOGLOBIN 12.9 g/dl (12.0-15.5); MEAN CORPUSCULAR HEMOGLOBIN 32.8 pg (27.0-33.0); MEAN CORPUSCULAR HGB CONC 32.2 g/dl (32.0-36.5); PLATELET COUNT, AUTOMATED 355 10^3/uL (150-450); RED BLOOD COUNT 3.93 10^6/uL (4.00-5.40); WHITE BLOOD COUNT 19.3 10^3/uL (4.0-10.0)
[2021-05-23 20:13] LABS: BLOOD UREA NITROGEN 15 MG/DL (7-18); CREATININE FOR GFR 0.86 MG/DL (0.55-1.30); GLOMERULAR FILTRATION RATE > 60.0 (>51); LITHIUM LEVEL 0.78 MEQ/L (0.60-1.20)
== END ==
LOC: M LAB 17:02
PROVIDERS: ATTEND Psychiatry & Neurology Psychiatry
DX: Z51.81 Encounter for therapeutic drug level monitoring (principal); Z79.899 Other long term (current) drug therapy

== ENCOUNTER → 2021-07-28 | Outpatient (CLI) | payer OTHER | LOC: M LABSMTC 12:04 | PROVIDERS: ATTEND Pediatrics | DX: Z11.52 Encounter for screening for COVID-19 (principal); Z20.822 Contact with and (suspected) exposure to COVID-19 | CPT/HCPCS: C9803; U0003 ==

== ENCOUNTER → 2021-09-08 | Outpatient (CLI) | payer OTHER ==
[~2021-09-08] MED LIST changes: +OMEP-173 PO; -OMEP-218 PO
[2021-09-08 14:09] LABS: BASO # 0.1 10^3/uL (0.0-0.2); BASO % 0.8 % (0.0-1.0); EOS # 0.3 10^3/uL (0.0-0.5); EOS % 2.8 % (0.0-3.0); HEMATOCRIT 41.1 % (36.0-47.0); HEMOGLOBIN 12.9 g/dl (12.0-15.5); LYMPH # 2.5 10^3/uL (1.5-5.0); LYMPH % 24.6 % (24.0-44.0); MEAN CORPUSCULAR HEMOGLOBIN 32.6 pg (27.0-33.0); MEAN CORPUSCULAR HGB CONC 31.4 g/dl (32.0-36.5); MEAN CORPUSCULAR VOLUME 103.8 fl (80.0-96.0); MONO % 9.6 % (2.0-8.0); NEUTROPHILS # 6.4 10^3/uL (1.5-8.5); NEUTROPHILS % 61.9 % (36.0-66.0); PLATELET COUNT, AUTOMATED 394 10^3/uL (150-450); RED BLOOD COUNT 3.96 10^6/uL (4.00-5.40); WHITE BLOOD COUNT 10.3 10^3/uL (4.0-10.0)
[2021-09-08 14:33] LABS: ALBUMIN 3.5 GM/DL (3.2-5.2); ALT/SGPT 33 U/L (12-78); BILIRUBIN,TOTAL 0.2 MG/DL (0.2-1.0); BLOOD UREA NITROGEN 10 MG/DL (7-18); CALCIUM LEVEL 9.8 MG/DL (8.5-10.1); CARBON DIOXIDE LEVEL 27 MEQ/L (21-32); CHLORIDE LEVEL 108 MEQ/L (98-107); CREATININE FOR GFR 0.89 MG/DL (0.55-1.30); GLOMERULAR FILTRATION RATE > 60.0 (>51); GLUCOSE, FASTING 74 MG/DL (70-100); POTASSIUM SERUM 4.3 MEQ/L (3.5-5.1); SODIUM LEVEL 139 MEQ/L (136-145); TOTAL PROTEIN 6.7 GM/DL (6.4-8.2)
== END ==
LOC: M LAB 12:55
PROVIDERS: ATTEND Internal Medicine Hematology & Oncology
DX: C50.912 Malignant neoplasm of unspecified site of left female breast (principal); Z17.0 Estrogen receptor positive status [ER+]

== ENCOUNTER → 2021-09-08 | Outpatient (CLI) | payer OTHER | LOC: M WHC 09:59 | PROVIDERS: ATTEND Nurse Practitioner Adult Health | DX: M81.0 Age-related osteoporosis without current pathological fracture (principal) ==

== ENCOUNTER → 2021-09-08 | Outpatient (CLI) | payer OTHER | LOC: M RAD 12:44 | PROVIDERS: ATTEND Internal Medicine Pulmonary Disease | DX: R91.1 Solitary pulmonary nodule (principal); Z87.891 Personal history of nicotine dependence ==

== ENCOUNTER → 2022-03-07 | Outpatient (REF) | payer OTHER ==
[~2022-03-07] MED LIST changes: -ASMA220A IN; +MOME220A IN
== END ==
LOC: M LAB REF 12:08
PROVIDERS: ATTEND Nurse Practitioner Adult Health
DX: E83.52 Hypercalcemia (principal)

== ENCOUNTER → 2022-03-17 | Outpatient (CLI) | payer OTHER | LOC: M RAD 17:05 | PROVIDERS: ATTEND Internal Medicine Pulmonary Disease | DX: R91.8 Other nonspecific abnormal finding of lung field (principal); J44.9 Chronic obstructive pulmonary disease, unspecified ==

== ENCOUNTER → 2022-04-13 | Outpatient (CLI) | payer OTHER ==
[~2022-04-13] MED LIST changes: -TAMO10TA PO; +TAMO10TA8 PO
== END ==
LOC: M WHC 13:40
PROVIDERS: ATTEND Nurse Practitioner Adult Health
DX: E04.1 Nontoxic single thyroid nodule (principal); E21.3 Hyperparathyroidism, unspecified

== ENCOUNTER → 2022-05-12 | Outpatient (CLI) | payer OTHER ==
[2022-05-12 18:30] LABS: HEMATOCRIT 43.8 % (36.0-47.0); MEAN CORPUSCULAR HEMOGLOBIN 33.4 pg (27.0-33.0); MEAN CORPUSCULAR VOLUME 104.5 fl (80.0-96.0); PLATELET COUNT, AUTOMATED 396 10^3/uL (150-450); RED BLOOD COUNT 4.19 10^6/uL (4.00-5.40); WHITE BLOOD COUNT 14.5 10^3/uL (4.0-10.0)
[2022-05-12 18:41] LABS: BLOOD UREA NITROGEN 17 MG/DL (7-18); CREATININE FOR GFR 0.93 MG/DL (0.55-1.30); GLOMERULAR FILTRATION RATE > 60.0 (>51); LITHIUM LEVEL 0.87 MEQ/L (0.60-1.20); THYROID STIMULATING HORMONE 0.956 uIU/ML (0.358-3.740)
== END ==
LOC: M LAB 16:56
PROVIDERS: ATTEND Psychiatry & Neurology Psychiatry
DX: Z79.899 Other long term (current) drug therapy (principal)

== ENCOUNTER → 2022-12-07 | Outpatient (CLI) | payer OTHER ==
[~2022-12-07] MED LIST changes: +DIPH-435 PO; -DIPH25CA32 PO
== END ==
LOC: M RAD 08:22
PROVIDERS: ATTEND Surgery
DX: E21.3 Hyperparathyroidism, unspecified (principal)
CPT/HCPCS: 78070; 78803; A9500

== ENCOUNTER → 2023-01-11 | Outpatient (CLI) | payer OTHER | LOC: M RAD 16:55 | PROVIDERS: ATTEND Internal Medicine Critical Care Medicine | DX: J44.9 Chronic obstructive pulmonary disease, unspecified (principal) ==

== ENCOUNTER → 2023-04-17 | Outpatient (CLI) | payer OTHER | LOC: M RAD 13:46 | PROVIDERS: ATTEND Internal Medicine Pulmonary Disease | DX: Z12.2 Encounter for screening for malignant neoplasm of respiratory organs (principal); Z87.891 Personal history of nicotine dependence; J44.9 Chronic obstructive pulmonary disease, unspecified; R91.1 Solitary pulmonary nodule; R91.8 Other nonspecific abnormal finding of lung field ==

== ENCOUNTER → 2023-04-20 | Outpatient (CLI) | payer OTHER ==
[2023-04-20 17:40] LABS: HEMATOCRIT 41.9 % (36.0-47.0); HEMOGLOBIN 13.2 g/dl (12.0-15.5); MEAN CORPUSCULAR HEMOGLOBIN 32.8 pg (27.0-33.0); MEAN CORPUSCULAR HGB CONC 31.5 g/dl (32.0-36.5); MEAN CORPUSCULAR VOLUME 104.2 fl (80.0-96.0); PLATELET COUNT, AUTOMATED 288 10^3/uL (150-450); RED BLOOD COUNT 4.02 10^6/uL (4.00-5.40); WHITE BLOOD COUNT 16.6 10^3/uL (4.0-10.0)
[2023-04-20 18:04] LABS: BLOOD UREA NITROGEN 7 MG/DL (9-23); CREATININE FOR GFR 0.78 MG/DL (0.55-1.30); GLOMERULAR FILTRATION RATE > 60.0 (>51)
[2023-04-20 18:05] LABS: THYROID STIMULATING HORMONE 1.967 uIU/ML (0.55-4.78)
[2023-04-20 19:50] LABS: LITHIUM LEVEL 1.14 MMOL/L (1.0-1.20)
== END ==
LOC: M LAB 16:39
PROVIDERS: ATTEND Psychiatry & Neurology Psychiatry
DX: Z79.899 Other long term (current) drug therapy (principal)

== ENCOUNTER → 2023-05-01 | Outpatient (REF) | payer OTHER | LOC: M LAB REF 16:20 | PROVIDERS: ATTEND Nurse Practitioner Adult Health | DX: E83.52 Hypercalcemia (principal) ==

== ENCOUNTER → 2023-09-10 | Outpatient (CLI) | payer OTHER | LOC: M WHC 09:00 | PROVIDERS: ATTEND Nurse Practitioner Family | DX: M85.89 Other specified disorders of bone density and structure, multiple sites (principal) ==

== ENCOUNTER → 2023-09-21 | Outpatient (CLI) | payer OTHER ==
[2023-09-21 17:18] LABS: HEMATOCRIT 42.5 % (36.0-47.0); HEMOGLOBIN 13.5 g/dl (12.0-15.5); MEAN CORPUSCULAR HEMOGLOBIN 32.1 pg (27.0-33.0); MEAN CORPUSCULAR HGB CONC 31.8 g/dl (32.0-36.5); MEAN CORPUSCULAR VOLUME 101.2 fl (80.0-96.0); PLATELET COUNT, AUTOMATED 409 10^3/uL (150-450); WHITE BLOOD COUNT 12.9 10^3/uL (4.0-10.0)
[2023-09-21 17:46] LABS: BLOOD UREA NITROGEN 13 MG/DL (9-23); GLOMERULAR FILTRATION RATE > 60.0 (>51); LITHIUM LEVEL 1.33 MMOL/L (1.0-1.20); THYROID STIMULATING HORMONE 1.352 uIU/ML (0.55-4.78)
== END ==
LOC: M LAB 16:19
PROVIDERS: ATTEND Psychiatry & Neurology Psychiatry
DX: Z79.899 Other long term (current) drug therapy (principal)

== ENCOUNTER → 2023-10-11 | Outpatient (REF) | payer OTHER | LOC: M LABWUC 12:31 | PROVIDERS: ATTEND Psychiatry & Neurology Psychiatry | DX: Z79.899 Other long term (current) drug therapy (principal) ==

== ENCOUNTER → 2023-11-02 | Outpatient (CLI) | payer OTHER | LOC: M RAD 15:03 | PROVIDERS: ATTEND Internal Medicine Pulmonary Disease | DX: J44.9 Chronic obstructive pulmonary disease, unspecified (principal); J43.1 Panlobular emphysema ==

== ENCOUNTER → 2023-11-13 | Outpatient (REF) | payer OTHER | LOC: M LAB REF 12:52 | PROVIDERS: ATTEND Nurse Practitioner Adult Health | DX: E83.52 Hypercalcemia (principal) ==

== ENCOUNTER → 2024-03-10 | Outpatient (CLI) | payer OTHER | LOC: M WUC 13:44 | PROVIDERS: ATTEND Internal Medicine Pulmonary Disease | DX: J44.9 Chronic obstructive pulmonary disease, unspecified (principal) ==

== ENCOUNTER → 2024-04-22 | Outpatient (CLI) | payer OTHER | LOC: M WUC 13:17 | PROVIDERS: ATTEND Internal Medicine Pulmonary Disease | DX: R06.02 Shortness of breath (principal) ==

== ENCOUNTER → 2024-05-19 | Outpatient (REF) | payer OTHER ==
[~2024-05-19] MED LIST changes: +LITH450T11 PO; -LITH45TASA PO
== END ==
LOC: M LAB REF 16:20
PROVIDERS: ATTEND Nurse Practitioner Adult Health
DX: E83.52 Hypercalcemia (principal)

== ENCOUNTER → 2024-06-09 | Outpatient (CLI) | payer OTHER | LOC: M RAD 13:41 | PROVIDERS: ATTEND Internal Medicine Pulmonary Disease | DX: Z87.891 Personal history of nicotine dependence (principal) ==

== ENCOUNTER → 2024-11-17 | Outpatient (REF) | payer OTHER ==
[~2024-11-17] MED LIST changes: -ADV500INH INH; +ADVA1AER10 INH
== END ==
LOC: M LAB REF 17:21
PROVIDERS: ATTEND Nurse Practitioner Adult Health
DX: E83.52 Hypercalcemia (principal)

== ENCOUNTER 2024-12-03 16:24 | Emergency (ER) | payer OTHER ==
[~2024-12-03] VITALS: Ht 154.9 cm; Wt 40.9 kg
[~2024-12-03 16:24] MED LIST changes: -LITH450T11 PO; +LITH450T17 PO
[2024-12-03 17:20] LABS: BASO # 0.1 10^3/uL (0.0-0.2); BASO % 0.6 % (0.0-1.0); EOS # 0.6 10^3/uL (0.0-0.5); HEMATOCRIT 39.1 % (36.0-47.0); HEMOGLOBIN 12.4 g/dl (12.0-15.5); LYMPH # 2.8 10^3/uL (1.5-5.0); LYMPH % 19.1 % (24.0-44.0); MEAN CORPUSCULAR HEMOGLOBIN 30.7 pg (27.0-33.0); MEAN CORPUSCULAR HGB CONC 31.7 g/dl (32.0-36.5); MEAN CORPUSCULAR VOLUME 96.8 fl (80.0-96.0); MONO # 1.3 10^3/uL (0.0-0.8); MONO % 8.9 % (2.0-8.0); NEUTROPHILS # 9.8 10^3/uL (1.5-8.5); PLATELET COUNT, AUTOMATED 426 10^3/uL (150-450); RED BLOOD COUNT 4.04 10^6/uL (4.00-5.40); WHITE BLOOD COUNT 14.6 10^3/uL (4.0-10.0)
[2024-12-03 17:53] LABS: ALBUMIN 3.7 G/DL (3.2-5.2); ALKALINE PHOSPHATASE 85 U/L (35-104); ALT/SGPT 17 U/L (7.0-40); AST/SGOT 20 U/L (<34); BILIRUBIN,DIRECT < 0.1 MG/DL (<0.4); BILIRUBIN,TOTAL 0.3 MG/DL (0.3-1.2); BLOOD UREA NITROGEN 12 MG/DL (9-23); CALCIUM LEVEL 10.9 MG/DL (8.3-10.6); CARBON DIOXIDE LEVEL 29 MMOL/L (20-31); CHLORIDE LEVEL 101 MMOL/L (98-107); CREATININE FOR GFR 1.19 MG/DL (0.55-1.30); GLUCOSE, FASTING 108 MG/DL (74-106); POTASSIUM SERUM 4.1 MMOL/L (3.5-5.1); SODIUM LEVEL 139 MMOL/L (136-145); TOTAL PROTEIN 6.6 G/DL (5.7-8.2)
[2024-12-03 17:54] LABS: THYROXINE (T4) 6.1 UG/DL (4.5-10.9)
[2024-12-03 17:55] LABS: THYROID STIMULATING HORMONE 2.038 uIU/ML (0.55-4.78)
[2024-12-03 17:57] LABS: CPK CREATINE PHOSPHOKINASE 49 U/L (34-145); MB/CK RELATIVE INDEX 2.04 (< OR =4)
[2024-12-03 18:10] VITALS: BP 169/96
[2024-12-03] MEDS: amLODIPine 5 MG TAB PO ONE (18:10)
[2024-12-03 19:00] VITALS: TEMP 97.6
[2024-12-03 19:08] LABS: CK-MB VALUE MASS < 1.0 NG/ML (<3.6)
[2024-12-03 19:13] LABS: CPK CREATINE PHOSPHOKINASE 37 U/L (34-145)
[2024-12-03] MEDS ORDERED: AMLO25TA PO (19:35)
[2024-12-03 20:45] VITALS: O2SAT 95
[2024-12-03 20:55] VITALS: BP 171/88
== END 2024-12-03 21:00 | disposition home or self-care (01) ==
LOC: M ED 16:24
DX: I10 Essential (primary) hypertension (principal); J44.9 Chronic obstructive pulmonary disease, unspecified; K21.9 Gastro-esophageal reflux disease without esophagitis; F31.9 Bipolar disorder, unspecified; Z87.891 Personal history of nicotine dependence; Z88.2 Allergy status to sulfonamides; Z88.5 Allergy status to narcotic agent; Z91.018 Allergy to other foods

== ENCOUNTER → 2024-12-10 | Outpatient (REF) | payer OTHER ==
[~2024-12-10] MED LIST changes: +AMLO25TA PO
== END ==
LOC: M LAB REF 17:59
PROVIDERS: ATTEND Nurse Practitioner Adult Health
DX: F31.9 Bipolar disorder, unspecified (principal)

== ENCOUNTER 2025-04-14 09:55 | Day surgery (SDC) | payer OTHER ==
[~2025-04-14] VITALS: Ht 157.5 cm; Wt 42.9 kg
[~2025-04-14 09:55] MED LIST changes: +ALBU8.5H INH; +ALEN70TA82 PO; -IBUP-1022 PO; +IBUP600T42 PO
[2025-04-14] MEDS: ALBUTEROL SULFATE 2.5 MG/0.5 ML INH CONCENTRATE NEB SOLN NEB STA (10:30)
[2025-04-14 11:50] VITALS: TEMP 97.5
[2025-04-14 12:30] VITALS: BP 134/77; O2SAT 96
== END 2025-04-14 12:41 | disposition home or self-care (01) ==
LOC: M OPP 09:55
PROVIDERS: ATTEND Surgery
DX: D12.6 Benign neoplasm of colon, unspecified (principal); Z86.0100 Personal history of colon polyps, unspecified; Z88.2 Allergy status to sulfonamides; Z88.5 Allergy status to narcotic agent; Z91.018 Allergy to other foods; Z79.899 Other long term (current) drug therapy; J44.9 Chronic obstructive pulmonary disease, unspecified; Z87.891 Personal history of nicotine dependence

== ENCOUNTER 2025-06-18 18:32 | Inpatient (IN) | payer OTHER ==
[~2025-06-18] VITALS: Ht 167.6 cm; Wt 43.6 kg
[2025-06-18] MEDS: NS (Normal Saline) 0.9% 1,000 ML IV SCH ×2 (19:00→22:12)
[2025-06-18 19:20] LABS: BASO # 0.1 10^3/uL (0.0-0.2); BASO % 0.5 % (0.0-1.0); EOS # 0.4 10^3/uL (0.0-0.5); EOS % 2.7 % (0.0-3.0); LYMPH # 2.3 10^3/uL (1.5-5.0); LYMPH % 14.2 % (24.0-44.0); MONO # 1.4 10^3/uL (0.0-0.8); MONO % 8.6 % (2.0-8.0); NEUTROPHILS # 12.1 10^3/uL (1.5-8.5); NEUTROPHILS % 73.5 % (36.0-66.0); PLATELET COUNT, AUTOMATED 431 10^3/uL (150-450)
[2025-06-18 19:30] LABS: ALT/SGPT 43 U/L (7.0-40); AST/SGOT 43 U/L (<34); CALCIUM LEVEL 11.7 MG/DL (8.3-10.6); CARBON DIOXIDE LEVEL 24 MMOL/L (20-31); CHLORIDE LEVEL 96 MMOL/L (98-107); CK-MB VALUE MASS 12.3 NG/ML (<3.6); CREATININE FOR GFR 1.58 MG/DL (0.55-1.30); GLOMERULAR FILTRATION RATE 37.0 (>45); MAGNESIUM LEVEL 1.9 MG/DL (1.8-2.4); POTASSIUM SERUM 3.5 MMOL/L (3.5-5.1); SODIUM LEVEL 132 MMOL/L (136-145)
[2025-06-18 19:32] LABS: FREE T4 1.54 NG/DL (0.89-1.76)
[2025-06-18 19:55] LABS: CPK CREATINE PHOSPHOKINASE 233 U/L (34-145); LITHIUM LEVEL > 3.00 MMOL/L (1.0-1.20); MB/CK RELATIVE INDEX 5.27 (< OR =4)
[2025-06-18 20:04] LABS: KETONE, URINE AUTO RFX NEGATIVE (NEGATIVE); LEUKOCYTE ESTERASE UR AUTO RFX 1+ (NEGATIVE); NITRITE, URINE AUTO RFX NEGATIVE (NEGATIVE); RBC, URINE AUTO RFX 1 /HPF (0-3); SQUAM EPITHELIAL CELL UR AURFX 1 /HPF (0-6); WBC, URINE AUTO RFX 2 /HPF (0-3)
[2025-06-18] MEDS ORDERED: THERTAB52 PO (21:10)
[2025-06-18] MEDS ORDERED: D-10TAB2 PO (21:10)
[2025-06-18] MEDS ORDERED: AMLO1TAB25 PO (21:10)
[2025-06-18] MEDS ORDERED: TIOT18CA INH (21:10)
[2025-06-18] MEDS ORDERED: LEVA0.6330 INH (21:16)
[2025-06-18] MEDS ORDERED: HOME MED LIST COMPLETE! XX SCH (21:20)
[2025-06-18] MEDS ORDERED: IPRATROPIUM 0.5 MG/ALBUTEROL 2.5 MG INH SOL UD 3 ML NEB PRN (21:20)
[2025-06-18] MEDS ORDERED: ONDANSETRON 4MG/2ML VIAL IV PRN (21:20)
[2025-06-18] MEDS: NS (Normal Saline) 0.9% 1,000 ML IV ONE (21:20)
[2025-06-18 21:44] LABS: C REACTIVE PROTEIN QUANTITATIV < 0.50 MG/DL (<1.0)
[2025-06-18 22:03] LABS: AMPHETAMINES LEVEL URINE NEGATIVE (NEGATIVE); BARBITURATES URINE NEGATIVE (NEGATIVE); BENZODIAZEPINES URINE NEGATIVE (NEGATIVE); COCAINE METABOLITE URINE NEGATIVE (NEGATIVE); METHADONE URINE NEGATIVE (NEGATIVE); OPIATES URINE NEGATIVE (NEGATIVE); PHENCYCLIDINE URINE NEGATIVE (NEGATIVE)
[2025-06-18 22:11] LABS: CANNABINOIDS URINE POSITIVE (NEGATIVE)
[2025-06-18] MEDS: cefTRIAXone SOD 1 GM in DEXTROSE 5% (D5W) ADV/MINI-BAG 50 ML IV SCH (23:16)
[2025-06-19] MEDS: HEPARIN SOD 5000 UNITS/ML 1 ML VIAL/SYRINGE SC SCH (05:53)
[2025-06-19 07:30] LABS: PLATELET COUNT, AUTOMATED 349 10^3/uL (150-450)
[2025-06-19] MEDS: OMEPRAZOLE 20MG CAP PO SCH (07:46)
[2025-06-19] MEDS: amLODIPine 10 MG TAB PO SCH (07:46)
[2025-06-19 08:42] LABS: LITHIUM LEVEL 1.49 MMOL/L (1.0-1.20)
[2025-06-19 08:45] LABS: ALT/SGPT 33.0 U/L (7.0-40); AST/SGOT 29.0 U/L (<34); CALCIUM LEVEL 9.3 MG/DL (8.3-10.6); CARBON DIOXIDE LEVEL 20.0 MMOL/L (20-31); CHLORIDE LEVEL 111.0 MMOL/L (98-107); CREATININE FOR GFR 1.27 MG/DL (0.55-1.30); GLOMERULAR FILTRATION RATE 48.1 (>45); MAGNESIUM LEVEL 1.7 MG/DL (1.8-2.4); POTASSIUM SERUM 3.4 MMOL/L (3.5-5.1); SODIUM LEVEL 144.0 MMOL/L (136-145)
[2025-06-19] MEDS: ADVAIR HFA 45/21 MCG INHALER INH SCH (09:12)
[2025-06-19] MEDS: TIOTROPIUM BROM 2.5MCG/ACTUATION 4GM INH INH SCH (09:12)
[2025-06-19] MEDS ORDERED: PROHANCE 279.3MG/ML 5ML VIAL As Ordered ONE (11:27)
[2025-06-19] MEDS: KCL 20MEQ IN 0.45NS 1000ML 1,000 ML IV SCH (13:25)
[2025-06-19] MEDS: POTASSIUM CHLORIDE 10MEQ SR TABLET PO ONE (13:26)
[2025-06-19 19:46] VITALS: BP 116/78; TEMP 97.9; O2SAT 95
[2025-06-20 05:15] VITALS: BP 119/72; TEMP 98.3; O2SAT 93
[2025-06-20 06:55] LABS: PLATELET COUNT, AUTOMATED 337 10^3/uL (150-450)
[2025-06-20 07:18] LABS: ALT/SGPT 32.0 U/L (7.0-40); AST/SGOT 23.0 U/L (<34); CALCIUM LEVEL 8.9 MG/DL (8.3-10.6); CARBON DIOXIDE LEVEL 19.0 MMOL/L (20-31); CHLORIDE LEVEL 115.0 MMOL/L (98-107); CREATININE FOR GFR 1.09 MG/DL (0.55-1.30); GLOMERULAR FILTRATION RATE 57.8 (>45); POTASSIUM SERUM 3.6 MMOL/L (3.5-5.1); SODIUM LEVEL 147.0 MMOL/L (136-145)
[2025-06-20 07:19] LABS: LITHIUM LEVEL 0.87 MMOL/L (1.0-1.20)
[2025-06-20 08:46] VITALS: BP 111/65
[2025-06-20 12:00] VITALS: BP 140/84; TEMP 97.3; O2SAT 98
[2025-06-20 14:00] VITALS: BP 127/82; TEMP 97.2; O2SAT 97
[2025-06-20] MEDS ORDERED: ALBUTEROL 90 MCG/ACT 8 GM HFA INHALER INH PRN (16:15)
[2025-06-20 19:51] VITALS: BP 116/81; TEMP 98.2; O2SAT 99
[2025-06-20] MEDS: ADVAIR HFA 230/21 MCG INHALER INH SCH (20:35)
[2025-06-21 05:32] VITALS: BP 131/84; TEMP 97.6; O2SAT 100
[2025-06-21] MEDS ORDERED: AMOXICILLIN 500 MG CAP PO SCH (07:15)
[2025-06-21 07:45] LABS: BASO # 0.1 10^3/uL (0.0-0.2); BASO % 1.0 % (0.0-1.0); EOS # 0.7 10^3/uL (0.0-0.5); EOS % 8.2 % (0.0-3.0); LYMPH # 1.9 10^3/uL (1.5-5.0); LYMPH % 20.5 % (24.0-44.0); MONO # 0.8 10^3/uL (0.0-0.8); MONO % 9.1 % (2.0-8.0); NEUTROPHILS # 5.5 10^3/uL (1.5-8.5); NEUTROPHILS % 61.0 % (36.0-66.0); PLATELET COUNT, AUTOMATED 347 10^3/uL (150-450)
[2025-06-21 08:08] LABS: CALCIUM LEVEL 9.2 MG/DL (8.3-10.6); CARBON DIOXIDE LEVEL 23.0 MMOL/L (20-31); CHLORIDE LEVEL 112.0 MMOL/L (98-107); CREATININE FOR GFR 1.11 MG/DL (0.55-1.30); GLOMERULAR FILTRATION RATE 56.6 (>45); POTASSIUM SERUM 3.9 MMOL/L (3.5-5.1); SODIUM LEVEL 144.0 MMOL/L (136-145)
[2025-06-21] MEDS ORDERED: LITH600C PO (08:16)
[2025-06-21] MEDS: LITHIUM CARBONATE 300 MG CAP PO SCH (09:47)
[2025-06-21] MEDS: FLUZONE VACCINE TRI PF(25-26) 0.5ML SYRINGE IM.IMMUN ONE (10:05)
== END 2025-06-21 12:00 | disposition home or self-care (01) | DRG 683 ==
LOC: M ED 20:23 → M ED INP 21:14 → M MS5PR 06-19 16:33
PROVIDERS: ADMIT Internal Medicine; ATTEND Student in an Organized Health Care Education/Training Program
DX: N17.9 Acute kidney failure, unspecified (principal); E87.1 Hypo-osmolality and hyponatremia; E87.20 Acidosis, unspecified; S22.060S Wedge compression fracture of T7-T8 vertebra, sequela; F31.9 Bipolar disorder, unspecified; F20.9 Schizophrenia, unspecified; J45.909 Unspecified asthma, uncomplicated; I10 Essential (primary) hypertension; K21.9 Gastro-esophageal reflux disease without esophagitis; M81.0 Age-related osteoporosis without current pathological fracture; T43.595A Adverse effect of other antipsychotics and neuroleptics, initial encounter; E83.52 Hypercalcemia; Z79.899 Other long term (current) drug therapy; Z88.2 Allergy status to sulfonamides; Z88.5 Allergy status to narcotic agent; Z91.018 Allergy to other foods; Z85.3 Personal history of malignant neoplasm of breast; Z85.42 Personal history of malignant neoplasm of other parts of uterus; Z90.79 Acquired absence of other genital organ(s)

== ENCOUNTER → 2025-06-29 | Outpatient (REF) | payer OTHER ==
[~2025-06-29] MED LIST changes: +AMLO1TAB25 PO; +D-10TAB2 PO; +LEVA0.6330 INH; +THERTAB52 PO; +TIOT18CA INH
== END ==
LOC: M LAB REF 12:30
PROVIDERS: ATTEND Internal Medicine
DX: T43.591A Poisoning by other antipsychotics and neuroleptics, accidental (unintentional), initial encounter (principal); F31.9 Bipolar disorder, unspecified